=== PATIENT | female | born 2000 | race Caucasian/White ===

== ENCOUNTER 2020-12-19 21:11 | Emergency (ER) | payer BC ==
[2020-12-20] MEDS ORDERED: CEPHALEXIN500 M1 PO (00:48)
[2020-12-20] MEDS ORDERED: ZOFRAN ODT 4 MG4 MG SL (00:48)
== END 2020-12-20 00:57 | disposition home or self-care (01) ==
LOC: ER1 21:11
DX: N39.0 Urinary tract infection, site not specified (principal); Z20.822 Contact with and (suspected) exposure to COVID-19
CPT/HCPCS: 81001; 84703; 99284; U0002

== ENCOUNTER 2021-06-25 06:44 | Emergency (ER) | payer BC ==
[~2021-06-25 06:44] MED LIST: CEPHALEXIN500 M1 PO; ZOFRAN ODT 4 MG4 MG SL
[2021-06-25] MEDS ORDERED: PYRIDIUM200 MG PO (08:18)
[2021-06-25] MEDS ORDERED: OMNICEF 300 MG300 MG PO (08:18)
== END 2021-06-25 09:19 | disposition home or self-care (01) ==
LOC: ER1 06:44
DX: N39.0 Urinary tract infection, site not specified (principal); F17.200 Nicotine dependence, unspecified, uncomplicated; Z88.2 Allergy status to sulfonamides
CPT/HCPCS: 81001; 84703; 87077; 87086; 87186; 99283

== ENCOUNTER → 2021-10-08 | Emergency (ER) | payer BC ==
[~2021-10-08] MED LIST changes: +OMNICEF 300 MG300 MG PO; +PYRIDIUM200 MG PO
[2021-10-08 01:15] LABS: HEMOGLOBIN 13.1 gm/dl (12.3-15.3); RED BLOOD COUNT 4.49 M/UL (4.00-5.10); WHITE BLOOD COUNT 6.4 K/UL (4.5-11.0)
[2021-10-08 01:40] LABS: BUN/CREATININE RATIO 20 (0-10)
== END | disposition left against medical advice (07) ==
LOC: ER1 00:22
PROVIDERS: Student in an Organized Health Care Education/Training Program
DX: R11.10 Vomiting, unspecified (principal)
CPT/HCPCS: 80053; 83690; 85025; 99281